=== PATIENT | male | born 1955 | race Caucasian/White ===

== ENCOUNTER 2024-04-25 10:13 | Outpatient (CLI) | payer MEDICARE, MEDICAID, SELFPAY ==
--- NOTE | 2024-04-25 10:20 | CT_ITS ---
WS: [id number] CT LEFT KNEE, NONCONTRAST HISTORY: PATELLOFERMORAL DISORDER OF LEFT KNEE Technique: All CT scans at [facility] use at least one of these dose optimization techniques: automated exposure control; mA and/or kV adjustment per patient size (includes targeted exams where dose is matched to clinical indication); or iterative reconstruction. DLP: 421.14 mGy.cm COMPARISON: None available. No acute fractures involving the LEFT knee. Mild tricompartment joint space narrowing. Small marginal osteophytes at the knee joint. There is a larger osteophyte measuring 6 mm from the anterior medial femoral condyle causing mild encroachment of the medial patellofemoral articulation. Small patellar osteophytes. Patella is normally positioned. Small suprapatellar joint effusion. Small Bland's cyst. No loose bodies or mass. CT/CT knee LT wo con* [id number] IMPRESSION: 1. Mild tricompartment joint space narrowing with arthropathy. 2. No fracture. 3. Normal position of the patella with no subluxation or dislocation. 4. Small suprapatellar joint effusion. 5. Small Bland's cyst.
== END 2024-04-25 10:14 | disposition home or self-care (01) ==
LOC: RAD 10:14
PROVIDERS: Family Provider Family Medicine; PCP Family Medicine; Visit Provider Nurse Practitioner
DX: M22.2X2 Patellofemoral disorders, left knee (principal); M25.762 Osteophyte, left knee; M71.22 Synovial cyst of popliteal space [Baker], left knee
CPT/HCPCS: 73700

== ENCOUNTER → 2024-05-06 14:09 | Outpatient (BNVA) | payer MEDICARE, MEDICAID, SELFPAY | PROVIDERS: Family Provider Family Medicine; PCP Family Medicine; Visit Provider Specialist | DX: M17.12 Unilateral primary osteoarthritis, left knee; S83.207A Unspecified tear of unspecified meniscus, current injury, left knee, initial encounter; X58.XXXA Exposure to other specified factors, initial encounter | CPT/HCPCS: 73560; 73565; 99204 ==

== ENCOUNTER 2024-05-17 12:45 | Outpatient (CLI) | payer MEDICARE, MEDICAID, SELFPAY ==
--- NOTE | 2024-05-17 13:00 | MR_ITS ---
WS: [id number] MRI LEFT KNEE HISTORY: knee pain COMPARISON: Radiograph 05/06/2024 Anterior cruciate ligament: Small amount of fluid along the ACL within the intercondylar notch. Posterior cruciate ligament: Intact. Medial collateral ligament: Mildly displaced in the joint line by osteophytes. No MCL tear. There is fluid adjacent to the medial collateral ligament Posterior lateral corner structures: Intact. Medial menisci: Intrasubstance degeneration in the posterior horn with blunting of the free edge. Can not confirm tear. Lateral meniscus: Intact. Normal signal, size and shape. Extensor mechanism: Distal quadriceps tendon and patellar tendons are intact. Fluid and soft tissue: Small suprapatellar joint effusion. Mild soft tissue edema surrounding the kne e. Small Bland's cyst. Osseous and articular structures: Patellofemoral compartment: Moderate narrowing of the joint space with significant loss of cartilage. No marrow edema. Medial compartment: Moderate narrowing of the medial compartment with near complete loss of cartilage . Marginal osteophytes and a small amount of edema in the lateral femoral condyle and tibial plateau. Osteophytes are partially displacing the MCL from the joint line. Lateral compartment: Very minimal narrowing and fissuring of the cartilage. There is a small amount o f marrow edema in the femoral condyle adjacent to the intercondylar notch. MR/MR knee LT wo con* [id number] IMPRESSION: 1. There is a small amount of fluid adjacent to the ACL in the intercondylar n otch but no full-thickness tear. 2. MCL is being displaced from the joint line by marginal osteophytes. 3. Intrasubstance degeneration in the posterior horn of the medial meniscus. 4. Patellofemoral compartment demonstrates moderate narrowing with significant loss of cartilage. 5. Moderate narrowing of the medial compartment with near complete loss of car tilage, marginal osteophytes and marrow edema. 6. Small amount of marrow edema in the lateral femoral condyle adjacent to the intercondylar notch. This is also the site of fluid associated with the ACL. 7. Bland's cyst.
== END 2024-05-17 12:46 | disposition home or self-care (01) ==
LOC: RAD 12:46
PROVIDERS: PCP Family Medicine; Visit Provider Specialist
DX: M17.12 Unilateral primary osteoarthritis, left knee (principal); M25.762 Osteophyte, left knee; M71.22 Synovial cyst of popliteal space [Baker], left knee
CPT/HCPCS: 73721

== ENCOUNTER → 2024-06-05 11:00 | Outpatient (BNVA) | payer MEDICARE, MEDICAID, SELFPAY | PROVIDERS: PCP Family Medicine; Visit Provider Specialist | DX: S83.207A Unspecified tear of unspecified meniscus, current injury, left knee, initial encounter (principal); M17.12 Unilateral primary osteoarthritis, left knee; R03.0 Elevated blood-pressure reading, without diagnosis of hypertension; X58.XXXA Exposure to other specified factors, initial encounter | CPT/HCPCS: 20610; 99214; J1100; J2795; J3301 ==

== ENCOUNTER → 2024-09-13 10:47 | Outpatient (BNVA) | payer MEDICARE, MEDICAID, SELFPAY | PROVIDERS: PCP Family Medicine; Referring Provider Nurse Practitioner; Visit Provider Student in an Organized Health Care Education/Training Program | DX: Z12.11 Encounter for screening for malignant neoplasm of colon (principal) | CPT/HCPCS: 99024; 99204 ==

== ENCOUNTER 2024-09-24 10:37 | Day surgery (SDC) | payer MEDICARE, MEDICAID, SELFPAY ==
[2024-09-24 10:46] VITALS: BP 180/101; PULSE 88; RESP 18; TEMP 36.3; O2SAT 97; BMI 31.2
--- NOTE | 2024-09-24 10:51 | W.PM.OPSUD ---
Surgery/Procedure H&P Update DATE OF PROCEDURE: September 24, 2024 DATE H&P PERFORMED: 09/13/24 H&P UPDATE INFORMATION: I have reviewed H&P completed within last 30 days, I have examined patient prior to procedure and No changes to prior documentation PLANNED PROCEDURE: Operation Date: 09/24/24 12:00 Proposed Procedures p Colonoscopy 95444 G0121 Z12.11(Not Applicable) - Mando Foreman MD
[2024-09-24] MEDS: sodium chloride 0.9% 500 ML 15 ML IV (11:00)
--- NOTE | 2024-09-24 11:19 | P.ANESASSM_ITS ---
Pre-Anesthetic Assessment Height/Weight: Height 1.78 m Weight 98.883 kg Temp Pulse Resp BP Pulse Ox O2 Del Method 97.4 F L 88 18 180/101 97 Room Air 09/24/24 10:46 09/24/24 10:46 09/24/24 10:46 09/24/24 10:46 09/24/24 10:46 09/24/24 10:46 Preop Diagnosis: screening Operation Date: 09/24/24 12:00 Proposed Procedures p Colonoscopy 26527 G0121 Z12.11(Not Applicable) - Mando Foreman MD Was Beta Jeffy taken within 24 hours: N/A Was Clonidine taken within 24 hours: N/A Last intake: Intake Last Liquid Date 09/23/24 Last Liquid Time 23:00 Last Solid Date 09/22/24 Last Solid Time 19:00 Social quit drinking 2 months ago Exam alert and oriented x 3 Airway Submandibular: within normal limits Cervical ROM: within normal limits Mallampati: Class II Dentition: false (left at home) History/ROS No significant history except as noted Pulmonary None reported CV/HEM had an episode in his 40s but not since then; denies CP None reported Hepatic fatty liver GI None reported Metabolic Hyperlipidemia (no meds) Musc/skel Osteoarthritis/DJD Neuropsych None reported Anesthetic Plan ASA status: 2 Anesthesia: MAC Risk of > 500 ml blood loss (7ml/kg in children): No Medications/Allergies Home Medications ?Medication ?Instructions ?Recorded ?Confirmed ?Last Taken ?Type No Known Home Medications 09/13/24 04/0 07/20 Unknown History Allergies Allergy/AdvReac Type Severity Reaction Status Date / Time No Known Allergies Allergy Verified 09/24/24 10:44 Current Medications Generic Name Dose Route Start Last Admin Trade Name Freq PRN Reason Stop Dose Admin Sodium Chloride 500 mls @ 15 mls/hr 09/23/24 13:02 09/24/24 11:00 Sodium Chloride 0.9% IV 09/24/24 13:01 15 mls/hr .Q24H PRN Administration COLONOSCOPY FLUIDS PFSH Anesthesia Social History Smoking and tobacco/nicotine status: current some day tobacco/nicotine user Data Anesthesia Cardiac Studies: No Data to Display
[2024-09-24 12:19] VITALS: BP 168/90; PULSE 88; RESP 18; TEMP 36.2; O2SAT 93
[2024-09-24 12:26] VITALS: BP 170/94; PULSE 86; RESP 18; TEMP 36.2; O2SAT 94
--- NOTE | 2024-09-24 12:45 | ANE.PACU2 ---
Inpatient post-anesthesia follow up: Airway intact: Yes Vital signs: Temperature 97.1 F Pulse Rate 86 Respiratory Rate 18 Blood Pressure 170/94 Pulse Oximetry 94 Oxygen Delivery Me thod Room Air Oxygen Flow Rate Fraction of Inspir ed Oxygen Hydration adequate: Yes Nausea and vomiting: No Pain level: 1 Mental status: Baseline
== END 2024-09-24 12:48 | disposition home or self-care (01) ==
PROVIDERS: PCP Family Medicine; Visit Provider Student in an Organized Health Care Education/Training Program
PROC: 0DJD8ZZ Inspection of Lower Intestinal Tract, Via Natural or Artificial Opening Endoscopic (ICD-10-PCS; CPT 45378; principal; 2024-09-24 12:00)
DX: Z12.11 Encounter for screening for malignant neoplasm of colon (principal); K57.30 Diverticulosis of large intestine without perforation or abscess without bleeding; D12.2 Benign neoplasm of ascending colon; D12.0 Benign neoplasm of cecum; F17.200 Nicotine dependence, unspecified, uncomplicated
CPT/HCPCS: 45380; 45385; 88305; J2704; J7040; J9999

== ENCOUNTER → 2024-10-07 13:14 | Outpatient (BNVA) | payer MEDICARE, MEDICAID, SELFPAY | PROVIDERS: PCP Family Medicine; Visit Provider Student in an Organized Health Care Education/Training Program | DX: Z09 Encounter for follow-up examination after completed treatment for conditions other than malignant neoplasm (principal) | CPT/HCPCS: 99213 ==

== ENCOUNTER → 2025-05-30 09:16 | Outpatient (BNVA) | payer MEDICARE, MEDICAID, SELFPAY | PROVIDERS: PCP Family Medicine; Visit Provider Specialist | DX: M17.12 Unilateral primary osteoarthritis, left knee (principal) | CPT/HCPCS: 20610; J1100; J2795; J3301; J9999 ==